=== PATIENT | male | born 1985 | race Caucasian/White ===

== ENCOUNTER 2019-01-12 11:55 | Emergency (ER) | payer OTHER ==
[2019-01-12 12:05] VITALS: BP 117/77; PULSE 83; RESP 18; TEMP 98
[2019-01-12] MEDS ORDERED: KETOROLAC 60 MG/2 ML VIAL IM STA (12:41)
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
--- NOTE | 2019-01-12 13:13 | XR ---
EXAMINATION TYPE: XR shoulder complete RT DATE OF EXAM: 01/12/2019 CLINICAL HISTORY: Pain since injury yesterday. TECHNIQUE: Three views of the right shoulder are obtained. COMPARISON: None. FINDINGS: There is no acute fracture/dislocation evident in the right shoulder. The acromioclavicul ar and glenohumeral joint spaces appear within normal limits. The visualized ribs are intact and unr emarkable. IMPRESSION: There is no acute fracture or dislocation in the right shoulder.
--- NOTE | 2019-01-12 13:14 | XR ---
EXAMINATION TYPE: XR AC joint BILAT DATE OF EXAM: 01/12/2019 COMPARISON: NONE HISTORY: Bilateral joint pain since injury yesterday. TECHNIQUE: Without and with weightbearing views of bilateral acromioclavicular joints. FINDINGS: There is satisfactory alignment of bilateral acromioclavicular joints without suspicious se paration or widening. No significant change on dynamic weight bearing images. IMPRESSION: No significant AC joint separation or injury.
== END 2019-01-12 13:40 | disposition home or self-care (01) ==
LOC: EC 11:55
DX: S42.141A Displaced fracture of glenoid cavity of scapula, right shoulder, initial encounter for closed fracture (principal); F17.200 Nicotine dependence, unspecified, uncomplicated; W51.XXXA Accidental striking against or bumped into by another person, initial encounter; Y93.68 Activity, volleyball (beach) (court)
CPT/HCPCS: 73050; 73030; 99283; 96372; J1885